=== PATIENT | female | born 1965 | race Caucasian/White ===

== ENCOUNTER 2018-11-25 12:51 | Emergency (ER) | payer OTHER ==
[~2018-11-25] VITALS: Ht 157.5 cm; Wt 60.3 kg
[2018-11-25 13:03] VITALS: Ht 157.5 cm; Wt 60.3 kg
[2018-11-25 15:57] LABS: BASOPHIL % 0.4 % (0-2); PLATELET COUNT 213 x10^3mcL (130-400)
[2018-11-25 16:12] LABS: CALCIUM 8.9 mg/dL (8.5-10.1); CARBON DIOXIDE 26.8 mmol/L (21-32); CHLORIDE SERUM 107 mmol/L (98-107); CREATININE SERUM 0.5 mg/dL (0.6-1.0); GFR1 > 60 mL/min; GLUCOSE SERUM 111 mg/dL (74-106); SODIUM SERUM 143 mmol/L (136-145)
[2018-11-25 16:25] LABS: ALBUMIN 3.5 g/dL (3.4-5.0); ALKALINE PHOSPHATASE 107 U/L (46-116); ALT/SGPT 40 U/L (14-59); AST/SGOT 27 U/L (15-37); BILIRUBIN TOTAL 0.28 mg/dL (0.20-1.00); TOTAL PROTEIN, SERUM 7.3 g/dL (6.4-8.2)
[2018-11-25 16:28] LABS: T4(THYROXINE) 18.2 ug/dL (4.7-13.3)
[2018-11-25 16:29] LABS: CK-MB 0.5 ng/mL (0-3.6)
[2018-11-25 16:37] LABS: AMPHETAMINE QUAL UR NONE DETECTED (See below)
[2018-11-25 17:30] VITALS: BP 108/60
== END 2018-11-25 17:30 | disposition home or self-care (01) ==
LOC: ED 12:51
PROVIDERS: Emergency Medicine
DX: R00.2 Palpitations (principal); E05.90 Thyrotoxicosis, unspecified without thyrotoxic crisis or storm
CPT/HCPCS: 36415; 36600; 83880; Q0092